=== PATIENT | female | born 1955 | race Hispanic/Latino ===

== ENCOUNTER 2017-02-11 15:09 | Emergency (ER) | payer OTHER ==
[2017-02-11] MEDS ORDERED: Orphenadrine Citrate 60 MG/2 ML VIAL ONE (15:44)
== END 2017-02-11 16:32 | disposition home or self-care (01) ==
LOC: NAV ERS 15:09
DX: M54.31 Sciatica, right side (principal); F17.210 Nicotine dependence, cigarettes, uncomplicated; E78.5 Hyperlipidemia, unspecified; Z79.82 Long term (current) use of aspirin; Z79.899 Other long term (current) drug therapy
CPT/HCPCS: 96372; J2270; J2360

== ENCOUNTER 2017-02-13 15:08 | Emergency (ER) | payer OTHER ==
[2017-02-13] MEDS ORDERED: Dexamethasone 4 mg/ml Vial ONE (15:51)
--- NOTE | 2017-02-13 16:38 | RAD ---
AP PELVIS: History: Right leg pain. FINDINGS: Mild degenerative changes are seen in the hip joints bilaterally. No acute fracture, dislocation, or bony destruction is identified. POS: [facility]
--- NOTE | 2017-02-13 16:53 | RAD ---
RIGHT KNEE FOUR VIEWS: History: Right knee pain. FINDINGS: There are post op changes of total knee arthroplasty in good position and alignment. No fracture, di slocation, or bony destruction is seen. No periprosthetic lucency is identified to suggest loosening . POS: [facility]
== END 2017-02-13 17:49 | disposition home or self-care (01) ==
LOC: NAV ERS 15:08
DX: M54.41 Lumbago with sciatica, right side (principal); K57.92 Diverticulitis of intestine, part unspecified, without perforation or abscess without bleeding; E66.9 Obesity, unspecified; E78.5 Hyperlipidemia, unspecified; E78.00 Pure hypercholesterolemia, unspecified; F17.210 Nicotine dependence, cigarettes, uncomplicated; Z79.82 Long term (current) use of aspirin; Z79.899 Other long term (current) drug therapy
CPT/HCPCS: 72170; J1100; J2270